=== PATIENT | female | born 1940 | race Caucasian/White ===

== ENCOUNTER 2021-05-29 09:55 | Inpatient (IN) | payer OTHER, MEDICARE, SELFPAY ==
[2021-05-29] VITALS (40 sets, daily range): BP systolic 97–149; BP diastolic 50–82; PULSE 86–111; RESP 17–44; TEMP 36.6–37.6; O2SAT 71–100; BMI 28.2
--- NOTE | ~2021-05-29 | XR_ITS ---
EXAMINATION: XR chest 2V DATE: 06/01/2021 12:54 INDICATION: Pneumonia TECHNIQUE: frontal and lateral views of the chest were obtained. COMPARISON: Chest radiograph dated 06/08/2021 FINDINGS: Significant decrease in density of regions of airspace opacity in the right mid to upper lung zones a nd throughout the left lung consistent with improving pneumonia. No pleural effusion or pneumothorax. Heart size is within normal limits for AP technique. Enlargement of the central pulmonary arteries c onsistent with pulmonary arterial hypertension. Mild thoracic dextrocurvature with moderate to severe spondylosis. IMPRESSION: 1. Significant improvement in patchy bilateral lung disease consistent with improving pneumonia. 2. Enlargement of the central pulmonary arteries consistent with pulmonary arterial hypertension. Reviewed, dictated and finalized at location B. SPINNER IMPRESSION: 1. Significant improvement in patchy bilateral lung disease consistent with imp roving pneumonia. 2. Enlargement of the central pulmonary arteries consistent with pulmonary jersey rial hypertension.
--- NOTE | ~2021-05-29 | US_ITS ---
EXAMINATION: US venous doppler [facility] DATE: 05/29/2021 13:18 INDICATION: Bilateral lower limb edema TECHNIQUE: Malave scale images without and with compression and Doppler images of the bilateral lower e xtremity veins were obtained. COMPARISON: None FINDINGS: The right common femoral vein, profunda femoral vein, femoral vein, popliteal vein, peroneal trunk, p osterior tibial veins, and greater saphenous vein are patent. The left common femoral vein, profunda femoral vein, femoral vein, popliteal vein, peroneal trunk, po sterior tibial veins, and greater saphenous vein are patent. IMPRESSION: 1. Patent bilateral lower extremity veins. No evidence of deep venous thrombosis. Reviewed, dictated and finalized at location A. ER TAPING MACHINE OPERATOR IMPRESSION: 1. Patent bilateral lower extremity veins. No evidence of deep venous thrombosi s.
--- NOTE | ~2021-05-29 | XR_ITS ---
EXAMINATION: XR chest 2V DATE: 05/29/2021 10:31 INDICATION: Shortness of breath TECHNIQUE: AP and lateral views of the chest are obtained. COMPARISON: None available FINDINGS: There are bilateral perihilar opacities extending peripherally into the lungs. More focal a irspace opacities are seen laterally in the right midlung zone and at the periphery of the left lower lung zone. There is no pleural effusion or pneumothorax. The cardiomediastinal silhouette is normal. There is mild thoracic spondylosis. IMPRESSION: 1. Bilateral perihilar opacities with more focal airspace opacity of the right midlung zone and left lower lung zone. Findings could reflect pulmonary edema versus pneumonia however underlying malignanc y could be obscured. Follow-up chest CT is recommended. Reviewed, dictated and finalized at location A. S READER IMPRESSION: 1. Bilateral perihilar opacities with more focal airspace opacity of the right midlung zone and left lower lung zone. Findings could reflect pulmonary edema v ersus pneumonia however underlying malignancy could be obscured. Follow-up ches t CT is recommended.
--- NOTE | ~2021-05-29 | CT_ITS ---
EXAMINATION: CTA chest PE protocol DATE: 05/29/2021 13:26 INDICATION: Shortness of breath. TECHNIQUE: Computed tomography (CT) pulmonary angiogram of the chest was performed with 100 mL Omnipa que-350 intravenous contrast. Additional 3D reconstructions utilizing coronal maximum intensity proje ction (MIP) were performed. Automated exposure control and iterative reconstruction technique were em ployed. The dose-length product was 217.59 mGy-cm. COMPARISON: None FINDINGS: Excellent contrast opacification of the pulmonary arteries. There is mild streak artifact from dense contrast in the superior vena cava and right atrium. Moderate to severe respiratory motion artifact m ost prominent at the lung bases and right upper lung zone which renders assessment in the segmental a nd subsegmental pulmonary arteries and essentially nondiagnostic. Decreased sensitivity in the remain ing segmental and subsegmental pulmonary arteries. No evident pulmonary embolism. There is enlargemen t of the central pulmonary arteries consistent with pulmonary arterial hypertension. Patchy consolida tion with air bronchograms in the bilateral upper lobes with smaller regions of small patchy airspace opacities in the lingula and to lesser degree right middle and bilateral lower lobes consistent with multifocal pneumonia. No pleural effusion. Emphysema suggested in the lower lung zones however fine pulmonary parenchymal detail is obscured by the motion artifact which decreases specificity. Heart si ze is normal. No pericardial effusion. Thoracic aorta is normal in caliber with no dissection. Mild m ediastinal and bilateral hilar lymphadenopathy which is likely reactive. Hydronephrosis versus parape lvic cysts at the visualized upper pole of the left kidney. Mild S-shaped curvature of the thoracic s pine. Severe lower cervical and moderate to severe thoracic spondylosis. IMPRESSION: 1. No evident pulmonary embolism. Sensitivity significantly decreased in the segmental and subsegment al pulmonary arteries due to primarily to respiratory motion artifact. 2. Bilateral multifocal pneumonia. 3. Likely emphysema assessment is somewhat limited by motion artifact. 4. Likely reactive mediastinal and bilateral hilar lymphadenopathy. 5. Hydronephrosis versus prominent peripelvic cysts at the visualized upper pole of the left kidney. Reviewed, dictated and finalized at location B. D INSTALLER IMPRESSION: 1. No evident pulmonary embolism. Sensitivity significantly decreased in the se gmental and subsegmental pulmonary arteries due to primarily to respiratory mot ion artifact. 2. Bilateral multifocal pneumonia. 3. Likely emphysema assessment is somewhat limited by motion artifact. 4. Likely reactive mediastinal and bilateral hilar lymphadenopathy. 5. Hydronephrosis versus prominent peripelvic cysts at the visualized upper sandy e of the left kidney.
--- NOTE | ~2021-05-29 | US_ITS ---
EXAMINATION: US renal BI EXAM DATE: 05/30/2021 17:28 INDICATION: Hydronephrosis. TECHNIQUE: Multiple grayscale and Doppler images of the kidneys were obtained (by a technologist who performed the scan) and subsequently reviewed. There is no prior study for comparison. FINDINGS: Right kidney: There is normal contour and echogenicity. It measures 9.8 x 4.1 x 5.3 centimeters. Th ere are no focal renal lesions identified. There is no hydronephrosis. Left kidney: There is normal contour and echogenicity. It measures 11.2 x 4.1 x 5.6 centimeters. Pro bable left renal parapelvic cysts measuring up to 1.4 cm. There is no caliectasis, no hydronephrosis suspected.. Bladder is undistended. IMPRESSION: Left renal peripelvic cysts. Reviewed, dictated and finalized at location A. ED GOODS SPOT PICKER
--- NOTE | 2021-05-29 10:18 | ECG_ITS ---
Measurements Intervals [place] Rate: 112 P: 57 MN: 151 QRS: -73 QRSD: 97 T: 49 QT: 329 QTc: 449 Interpretive Statements SINUS TACHYCARDIA VENTRICULAR PREMATURE COMPLEX POSSIBLE LEFT ATRIAL ENLARGEMENT LEFT AXIS DEVIATION INCOMPLETE RIGHT BUNDLE BRANCH BLOCK POOR R WAVE PROGRESSION, ANTERIOR LEADS BASELINE ARTIFACT- I, II, III, AVR, AVL, V1-V2 ABNORMAL ECG Electronically Signed On 05-29-2021 10:27:50 CRACK OFF PERSON by Bruce Bahena D.O.
--- NOTE | 2021-05-29 11:08 | ED.SOB ---
HPI - SOB/Dyspnea General Chief Complaint: Shortness of Breath/Dyspnea <Kassandra Artis PA-C - Last Filed: 05/29/21 14:31> Stated Complaint: SOB DIFFICULTY BREATHING <Kassandra Artis PA-C - Last Filed: 05/29/21 14:31> Time Seen by Provider: 05/29/21 10:20 <Kassandra Artis PA-C - Last Filed: 05/29/21 14:31> Source: patient <Kassandra Artis PA-C - Last Filed: 05/29/21 14:31> Mode of arrival: EMS <Kassandra Artis PA-C - Last Filed: 05/29/21 14:31> Limitations: no limitations <Kassandra Artis PA-C - Last Filed: 05/29/21 14:31> History of Present Illness HPI Narrative: This is an 16-year-old female that presents to the emergency department for shortness of breath ongoing over the last 2 days. Reports she has been traveling with her son and ran out of her inhaler. She has had worsening shortness of breath and cough. Also reports swelling in her lower extremities that has been ongoing for months. She is Covid vaccinated. Denies fever or chest pain. <Kassandra Artis PA-C - Last Filed: 05/29/21 14:31> Related Data Allergies/Adverse Reactions: Allergies Allergy/AdvReac Type Severity Reaction Status Date / Time No Known Allergies Allergy Verified 05/29/21 10:13 <Kassandra Artis PA-C - Last Filed: 05/29/21 14:31> Review of Systems Review of Systems: CONSTITUTIONAL: Denies fever CARDIOVASCULAR: Reports edema. Denies chest pain RESPIRATORY: Reports cough and dyspnea. <Kassandra Artis PA-C - Last Filed: 05/29/21 14:31> All systems reviewed & are unremarkable except as noted in HPI and below <Kassandra Artis PA-C - Last Filed: 05/29/21 14:31> [facility] Past Medical History Medical History: Medical History (Updated 05/29/21 @ 14:23 by Kassandra Artis PA-C) History of asthma <Kassandra Artis PA-C - Last Filed: 05/29/21 14:31> Social History Social History: Social History (Updated 05/29/21 @ 11:10 by Kassandra Artis PA-C) Smoking status: Never smoker <Kassandra Artis PA-C - Last Filed: 05/29/21 14:31> Exam Narrative: GENERAL: Elderly, well-nourished, and in no acute distress. HEAD: Normocephalic, atraumatic. EYES: EOMI. ENT: Nares clear, no rhinorrhea or epistaxis. Mucous membranes moist. Oropharynx without tonsillar hypertrophy exudate or other lesions. NECK: Supple. No adenopathy or masses. CHEST: No respiratory distress. Rales noted throughout the lungs. No wheezes or rhonchi HEART: Regular rate and rhythm. No murmur heard. Normal peripheral pulses. EXTREMITIES: Normal range of motion. 1+ pitting edema to the bilateral lower extremities SKIN: Warm, dry, no rash. NEURO: No focal deficits. Alert and oriented x3. PSYCH: Normal mood and affect <Kassandra Artis PA-C - Last Filed: 05/29/21 14:31> Course ROLLED GLASS CROSSCUTTER/PA Physician Supervision For this patient encounter, I reviewed the ROLLED GLASS CROSSCUTTER or PA documentation, treatment plan, and medical decision making; and I had [id number] time with this patient. SOB and cough for a day, improved on O2, agree with w/u and plan <Tahir Wills MD - Last Filed: 05/29/21 15:58> Consultations Consultation #1: Spoke with hospitalist about patient and work-up who accepts admission <Kassandra Artis PA-C - Last Filed: 05/29/21 14:31> Date: 05/29/21 <Kassandra Artis PA-C - Last Filed: 05/29/21 14:31> Time: 14:00 <Kassandra Artis PA-C - Last Filed: 05/29/21 14:31> Vital Signs Vital signs: Vital Signs Temperature 37.3 C 05/29/21 09:56 Pulse Rate 104 H 05/29/21 09:56 Respiratory Rate 26 H 05/29/21 09:56 Blood Pressure 118/76 05/29/21 09:56 Pulse Oximetry 93 05/29/21 09:56 Temperature 37.3 C 05/29/21 09:56 Pulse Rate 99 05/29/21 14:31 Respiratory Rate 26 H 05/29/21 14:31 Blood Pressure 133/78 05/29/21 14:31 Pulse Oximetry 95 05/29/21 14:15 <Kassandra Artis PA-C - Last Filed: 05/29/21 14:31> Vital Signs Temperature 37.3 C 05/29/21 09:56
[2021-05-29 11:47] LABS: Hematocrit 36.8 % (37.0-47.0); Hemoglobin 11.6 g/dL (12.0-15.0); Mean Corpuscular HGB Conc 31.5 g/dl (32-36); Mean Corpuscular Hemoglobin 27.8 pg (26-34); Mean Corpuscular Volume 88.2 fl (80-100); Mean Platelet Volume 9.6 fl (7.4-10.4); Platelet Count Result 231 k/mm3 (150-375); Red Blood Count 4.17 M/mm3 (4.2-5.4); Red Cell Distribution Width 17.5 % (11.5-14.5); White Blood Count 12.5 K/mm3 (4.5-10.0)
[2021-05-29 11:56] LABS: Alanine Aminotransferase 13 U/L (4-35); Albumin Level 3.6 g/dL (3.5-5.1); Alkaline Phosphatase 88 U/L (38-126); Anion Gap 6 mmol/L (8-16); Aspartate Amino Transferase 23 U/L (14-36); Bilirubin,Total 0.7 mg/dL (0.2-1.3); Blood Urea Nitrogen 12 mg/dL (7-17); Calcium 8.7 mg/dL (8.4-10.2); Carbon Dioxide 25 mmol/L (22-30); Chloride 100 mmol/L (98-107); Estimated CRCL calculation 51 ml/min; Estimated Glomerular Filt Rate > 60; Glucose 120 mg/dL (65-110); Potassium 3.7 mmol/L (3.4-5.0); Sodium 131 mmol/L (137-145)
[2021-05-29 11:57] LABS: INR 1.2; Prothrombin Time 14.8 Seconds (11.1-14.7)
[2021-05-29 11:58] LABS: Partial Thromboplastin Time 31.2 SECONDS (22.3-36.8)
[2021-05-29 12:00] LABS: D Dimer 3.38 ug/mL (<0.48)
[2021-05-29 12:04] LABS: NT Pro B Type Natriuretic Pept 3480 pg/mL (5-100)
[2021-05-29] MEDS: FUROSEMIDE INJ 40 MG/4 ML VIAL IV PUSH (12:13)
[2021-05-29 12:26] LABS: Band Neutrophils Percent 20 % (0-6); Metamyelocytes Percent 2 %; Monocytes Percent Manual 12 % (3-9); Neutrophils Absolute Manual 10.25 K/mm3 (1.7-7.2); Neutrophils Percent Manual 62 % (46-73); Total Cells Counted 100
[2021-05-29 12:27] LABS: Hypochromasia 1+ (NORMAL); Platelet Estimate Adequate (Adequate)
--- NOTE | 2021-05-29 12:30 | PC.NURSE ---
Pt gone to ultra sound and CT
--- NOTE | 2021-05-29 12:50 | PC.NURSE ---
Provided son with update
--- NOTE | 2021-05-29 14:35 | PC.NURSE ---
GEORGIANA Cohn confirmed she would like blood cultures, will get blood cultures before starting antibiotics
[2021-05-29 15:05] LABS: Lactic Acid Reflex 1.9 mmol/L (0.7-2.1)
[2021-05-29 15:13] LABS: Lactate Dehydrogenase 515 U/L (313-618)
[2021-05-29 15:28] LABS: CRP 25.5 mg/dL (<1.0)
--- NOTE | 2021-05-29 18:35 | PC.NURSE ---
Called pharmacy to send albuterol inhaler
[2021-05-29] MEDS: ALBUTEROL SULFATE (*SP) AEROSOL 1 PUFF 2 PUFF INHALATION (18:46)
--- NOTE | 2021-05-29 18:52 | PC.NURSE ---
Attempted to give report x2
--- NOTE | 2021-05-29 20:05 | PM.IMHP ---
H&P: HPI History of Present Illness Date/Time: 05/29/21 20:05 this is a 80-year-old female patient who resides in [place]. She had been out of her inhalers and she has a history of asthma. She has been having a worsening cough and shortness of breath. She does not wear oxygen at home. Her son Irvin also has a cough. CTA was read as 1. No evident pulmonary embolism. Sensitivity significantly decreased in the segmental and subsegmental pulmonary arteries due to primarily to respiratory motion artifact. 2. Bilateral multifocal pneumonia. 3. Likely emphysema assessment is somewhat limited by motion artifact. 4. Likely reactive mediastinal and bilateral hilar lymphadenopathy. 5. Hydronephrosis versus prominent peripelvic cysts at the visualized upper pole of the left kidney. The patient was given IV Lasix and started on Rocephin and azithromycin. She was also given an albuterol inhaler. Patient is on oxygen at 5 L per nasal cannula. White count is 12.5 H&H 11.6 and 36.8. D-dimer 3.38. BNP 3480. C reactive protein 25.5. COVID testing is pending. Patient is being admitted to inpatient status on the date of service of 05/29/2021. Chief Complaint: cough Review of Systems Review of Systems: All systems reviewed & are unremarkable except as noted in HPI and below Constitutional: Constitutional: Reports as per HPI and Reports no additional constitutional complaints Eyes: Eyes: Reports as per HPI and Reports no additional eye complaints ENT: Reports system reviewed and no additional complaints, except as documented and Reports Normal hearing present Cardiovascular: Cardiovascular: Reports no additional cardiovascular complaints Respiratory: Respiratory: Reports no additional respiratory complaints and Reports no additional respiratory complaints Gastrointestinal: Gastrointestinal: Reports as per HPI and Reports no additional gastrointestinal complaints Musculoskeletal: Musculoskeletal: Reports no additional musculoskeletal complaints Integumentary/Breasts: Skin/Breast: Reports system reviewed and no additional complaints, except as docu and Reports as per HPI Neurologic: Reports system reviewed and no additional complaints, except as documented, Reports as per HPI and Reports Normal hearing present Psychiatric: Psychiatric: Reports no additional psychiatric complaints and Reports as per HPI Endocrine: Endocrine: Reports no additional endocrine complaints Hematologic/Lymphatic: Hematologic/Lymphatic: Reports no additional hematologic/lymphatic complaints Allergic/Immunologic: Allergic/Immunologic: Reports no additional allergic/immunologic complaints [facility] Past Medical History Medical History (Updated 05/29/21 @ 14:23 by Kassandra Artis PA-C) History of asthma Surgical History Surgical History (Updated 05/29/21 @ 20:16 by Tiana Lr NP) H/O section X3 Family History Family History (Updated 05/29/21 @ 20:17 by Tiana Lr NP) Unknown No family history of disorders Social History Social History (Updated 05/29/21 @ 20:21 by Tiana Lr NP) Social History: The patient had 3 children and 1 was a stillbirth. The patient is and lives in [place]. She has 2 living children. The patient still works for [employer]. She lives with her son. The son is a durable power civil attorney for healthcare. Code status full code Smoking status: Never smoker Meds Home Medications and Allergies Allergies Allergy/AdvReac Type Severity Reaction Status Date / Time No Known Allergies Allergy Verified 05/29/21 10:13 Vital Signs Vital Signs - 24 hr 05/29/21 09:56 05/29/21 10:22 05/29/21 11:30 Temperature 37.3 C Pulse Rate 104 H 111 H 102 H Respiratory Rate 26 H 17 Blood Pressure 118/76 Pulse Oximetry 93 95 05/29/21 11:31 05/29/21 11:45 05/29/21 12:00 Temperature Pulse Rate 98 Respiratory Rate 26 H Blood Pressure 116/69 Pulse Oximetry 7
[2021-05-29 21:04] LABS: Alanine Aminotransferase 14 U/L (4-35); Estimated CRCL calculation 51 ml/min; Estimated Glomerular Filt Rate > 60
[2021-05-29 21:11] LABS: INR 1.4; Prothrombin Time 16.5 Seconds (11.1-14.7)
[2021-05-29] MEDS: ACETAMINOPHEN 325 MG TABLET 650 MG PO (22:07)
--- NOTE | 2021-05-29 22:15 | PC.NURSE ---
This patient, Stacey Aguilar, was admitted to [facility] Surg Room 305-01. Patient/family oriented to hospital policies and general routines including ID bracelet, bed and alarms, visiting hours, pain management, procedures, bathroom and other care routines, personal items, smoking policy, room service/diet, and visiting hours. Information on how to activate the Rapid Response Team has been discussed. Patient/Family are encouraged to report perceived risks to care and to ask questions if they do not understand what they are told or what they should do.
[2021-05-30] VITALS (8 sets, daily range): BP systolic 95–132; BP diastolic 48–64; PULSE 64–83; RESP 16–19; TEMP 35.8–36.4; O2SAT 93–100; BMI 28.2
[2021-05-30 07:40] LABS: INR 1.4; Prothrombin Time 16.8 Seconds (11.1-14.7)
[2021-05-30 07:47] LABS: Lactic Acid Reflex 1.6 mmol/L (0.7-2.1)
[2021-05-30 07:54] LABS: Alanine Aminotransferase 14 U/L (4-35); Albumin Level 3.7 g/dL (3.5-5.1); Alkaline Phosphatase 95 U/L (38-126); Anion Gap 8 mmol/L (8-16); Aspartate Amino Transferase 22 U/L (14-36); Bilirubin,Total 0.6 mg/dL (0.2-1.3); Blood Urea Nitrogen 20 mg/dL (7-17); Calcium 8.9 mg/dL (8.4-10.2); Carbon Dioxide 29 mmol/L (22-30); Chloride 99 mmol/L (98-107); Estimated CRCL calculation 45 ml/min; Estimated Glomerular Filt Rate > 60; Glucose 138 mg/dL (65-110); Lactate Dehydrogenase 465 U/L (313-618); Magnesium 2.2 mg/dL (1.6-2.3); Potassium 3.8 mmol/L (3.4-5.0); Sodium 136 mmol/L (137-145)
[2021-05-30] MEDS: ENOXAPARIN 40 MG/0.4 ML SYRINGE SUB-Q (08:38)
[2021-05-30 09:56] LABS: Hematocrit 37.8 % (37.0-47.0); Hemoglobin 11.7 g/dL (12.0-15.0); Mean Corpuscular Hemoglobin 28.1 pg (26-34); Mean Corpuscular Volume 90.9 fl (80-100); Mean Platelet Volume 9.9 fl (7.4-10.4); Platelet Count Result 217 k/mm3 (150-375); Red Blood Count 4.16 M/mm3 (4.2-5.4); Red Cell Distribution Width 17.3 % (11.5-14.5); White Blood Count 11.8 K/mm3 (4.5-10.0)
--- NOTE | 2021-05-30 10:15 | P.PNIM_ITS ---
Progress Note: A&P Assessment and Plan (1) Pneumonia: Qualifiers: Laterality: bilateral Lung location: unspecified part of lung Pneumonia type: due to unspecified organism Qualified Code(s): J18.9 - Pneumonia, unspecified organism Code(s): J18.9 - Pneumonia, unspecified organism Status: Acute Assessment and Plan: * Chest x-ray show bilateral peripheral opacities with focal airspace opacities in the right mid low zone and left lower lung zone pulmonary edema versus pneumonia * CTA showed no PE, bilateral multifocal pneumonia, emphysema * Continue with azithromycin Rocephin * Continue with inhaler * Blood cultures pending * COVID pending * sputum culture ordered * tailor antibiotics as sensitivities arrive * await cultures (2) Acute respiratory failure with hypoxia: Code(s): J96.01 - Acute respiratory failure with hypoxia Status: Acute Assessment and Plan: * SpO2 noted to be at 71 * supplemental oxygen provided wean to maintain saturations greater than 92% * no history of oxygen use at home * Trend SpO2 * there could be a component of heart failure (3) Person under investigation for COVID-19: Code(s): Z20.822 - Contact with and (suspected) exposure to COVID-19 Status: Acute Assessment and Plan: * droplet and contact isolation * Start Decadron * COVID pending * Lovenox * albuterol (4) Heart failure: Code(s): I50.9 - Heart failure, unspecified Status: Acute Assessment and Plan: * BNP 3480 * echo pending * 2+ pitting edema bilateral lower extremities * add Lasix 40 mg b.i.d. x4 doses * monitor urine output * daily weights (5) Asthma: Code(s): J45.909 - Unspecified asthma, uncomplicated Status: Acute Assessment and Plan: * continue home Advair, and albuterol * CTA shows emphysema (6) Lymphadenopathy: Code(s): R59.1 - Generalized enlarged lymph nodes Status: Acute Assessment and Plan: * found on the chest CT will have patient follow-up outpatient when she gets home Time Spent With Patient Time with patient: Greater than 35 minutes Subjective Date/time seen: 05/30/21 1015 Interval history: Date/Time: 05/29/21 20:05 This is a 80-year-old female patient who resides in [place]. She had been out of her inhalers and she has a history of asthma. She has been having a worsening cough and shortness of breath. She does not wear oxygen at home. Her son Irvin also has a cough. CTA was read as 1. No evident pulmonary embolism. Sensitivity significantly decreased in the segmental and subsegmental pulmonary arteries due to primarily to respiratory motion artifact. 2. Bilateral multifocal pneumonia. 3. Likely emphysema assessment is somewhat limited by motion artifact. 4. Likely reactive mediastinal and bilateral hilar lymphadenopathy. 5. Hydronephrosis versus prominent peripelvic cysts at the visualized upper pole of the left kidney. The patient was given IV Lasix and started on Rocephin and azithromycin. She was also given an albuterol inhaler. Patient is on oxygen at 5 L per nasal cannula. White count is 12.5 H&H 11.6 and 36.8. D-dimer 3.38. BNP 3480. C reactive protein 25.5. COVID testing is pending. Date/Time 05/30/21 1015 Patient stated that she feels okay however she has no energy and lack of appetite. Patient was having some sweats however she has
--- NOTE | 2021-05-30 10:15 | PM.IMPN ---
Progress Note: A&P Assessment and Plan (1) Pneumonia: Qualifiers: Laterality: bilateral Lung location: unspecified part of lung Pneumonia type: due to unspecified organism Qualified Code(s): J18.9 - Pneumonia, unspecified organism Code(s): J18.9 - Pneumonia, unspecified organism Status: Acute Assessment and Plan: Chest x-ray show bilateral peripheral opacities with focal airspace opacities in the right mid low zone and left lower lung zone pulmonary edema versus pneumonia CTA showed no PE, bilateral multifocal pneumonia, emphysema Continue with azithromycin Rocephin Continue with inhaler Blood cultures pending COVID pending sputum culture ordered tailor antibiotics as sensitivities arrive await cultures (2) Acute respiratory failure with hypoxia: Code(s): J96.01 - Acute respiratory failure with hypoxia Status: Acute Assessment and Plan: SpO2 noted to be at 71 supplemental oxygen provided wean to maintain saturations greater than 92% no history of oxygen use at home Trend SpO2 there could be a component of heart failure (3) Person under investigation for COVID-19: Code(s): Z20.822 - Contact with and (suspected) exposure to COVID-19 Status: Acute Assessment and Plan: droplet and contact isolation Start Decadron COVID pending Lovenox albuterol (4) Heart failure: Code(s): I50.9 - Heart failure, unspecified Status: Acute Assessment and Plan: BNP 3480 echo pending 2+ pitting edema bilateral lower extremities add Lasix 40 mg b.i.d. x4 doses monitor urine output daily weights (5) Asthma: Code(s): J45.909 - Unspecified asthma, uncomplicated Status: Acute Assessment and Plan: continue home Advair, and albuterol CTA shows emphysema (6) Lymphadenopathy: Code(s): R59.1 - Generalized enlarged lymph nodes Status: Acute Assessment and Plan: found on the chest CT will have patient follow-up outpatient when she gets home Time Spent With Patient Time with patient: Greater than 35 minutes Subjective Date/time seen: 05/30/21 1015 Interval history: Date/Time: 05/29/21 20:05 This is a 80-year-old female patient who resides in [place]. She had been out of her inhalers and she has a history of asthma. She has been having a worsening cough and shortness of breath. She does not wear oxygen at home. Her son Irvin also has a cough. CTA was read as 1. No evident pulmonary embolism. Sensitivity significantly decreased in the segmental and subsegmental pulmonary arteries due to primarily to respiratory motion artifact. 2. Bilateral multifocal pneumonia. 3. Likely emphysema assessment is somewhat limited by motion artifact. 4. Likely reactive mediastinal and bilateral hilar lymphadenopathy. 5. Hydronephrosis versus prominent peripelvic cysts at the visualized upper pole of the left kidney. The patient was given IV Lasix and started on Rocephin and azithromycin. She was also given an albuterol inhaler. Patient is on oxygen at 5 L per nasal cannula. White count is 12.5 H&H 11.6 and 36.8. D-dimer 3.38. BNP 3480. C reactive protein 25.5. COVID testing is pending. Date/Time 05/30/21 1015 Patient stated that she feels okay however she has no energy and lack of appetite. Patient was having some sweats however she has not had any sweats fevers or chills today. She is weak and she does have fatigue and she is feeling hot. She is short of breath and has productive cough which she stated was yellow and looks like vanilla pudding. Patient was very good about remembering her childhood. COVID test is still pending. Patient denied chest pain, lightheadedness, dizziness, headaches. Review of Systems Review of Systems: All systems reviewed & are unremarkable except as noted in HPI and below Exam Const: Gen
[2021-05-30 12:07] LABS: Band Neutrophils Percent 17 % (0-6); Monocytes Absolute Manual 0.59 K/mm3 (0.1-0.90); Monocytes Percent Manual 5 % (3-9); Neutrophils Absolute Manual 11.21 K/mm3 (1.7-7.2); Neutrophils Percent Manual 78 % (46-73); Platelet Estimate Adequate (Adequate); Total Cells Counted 100
[2021-05-30] MEDS: FUROSEMIDE INJ 40 MG/4 ML VIAL IV PUSH (18:26)
[2021-05-30 20:26] LABS: SARS-CoV-2 RNA PCR Negative
[2021-05-31] VITALS (11 sets, daily range): BP systolic 110–141; BP diastolic 46–74; PULSE 59–90; RESP 18–20; TEMP 36–36.5; O2SAT 94–98
[2021-05-31 07:00] LABS: Basophils Absolute Auto 0.1 K/mm3 (0.0-0.1); Basophils Percent Auto 0.4 % (0.2-1.2); Hemoglobin 13.1 g/dL (12.0-15.0); Immature Granulocyte Absolute 0.04 K/mm3 (0.00-0.031); Immature Granulocyte Percent A 0.3 % (0-0.5); Lymphocytes Absolute Auto 0.59 K/mm3 (0.9-3.2); Lymphocytes Percent Auto 4.9 % (18.3-44.2); Mean Corpuscular HGB Conc 31.2 g/dl (32-36); Mean Corpuscular Hemoglobin 27.9 pg (26-34); Mean Corpuscular Volume 89.6 fl (80-100); Mean Platelet Volume 10.3 fl (7.4-10.4); Monocytes Absolute Auto 0.6 K/mm3 (0.1-0.6); Neutrophils Absolute Auto 10.8 K/mm3 (1.3-6.7); Neutrophils Percent Auto 89.4 % (45.5-73.1); Platelet Count Result 259 k/mm3 (150-375); Red Blood Count 4.69 M/mm3 (4.2-5.4); Red Cell Distribution Width 17.2 % (11.5-14.5); White Blood Count 12.1 K/mm3 (4.5-10.0)
[2021-05-31 07:23] LABS: Alanine Aminotransferase 14 U/L (4-35); Albumin Level 3.6 g/dL (3.5-5.1); Alkaline Phosphatase 91 U/L (38-126); Anion Gap 10 mmol/L (8-16); Aspartate Amino Transferase 21 U/L (14-36); Bilirubin,Total 0.4 mg/dL (0.2-1.3); Blood Urea Nitrogen 34 mg/dL (7-17); Calcium 8.9 mg/dL (8.4-10.2); Carbon Dioxide 27 mmol/L (22-30); Chloride 99 mmol/L (98-107); Estimated CRCL calculation 44 ml/min; Estimated Glomerular Filt Rate > 60; Glucose 129 mg/dL (65-110); Magnesium 2.7 mg/dL (1.6-2.3); Potassium 3.6 mmol/L (3.4-5.0); Sodium 136 mmol/L (137-145)
[2021-05-31 07:42] LABS: INR 1.1; Prothrombin Time 13.8 Seconds (11.1-14.7)
[2021-05-31] MEDS: ENOXAPARIN 40 MG/0.4 ML SYRINGE SUB-Q (09:45)
[2021-05-31] MEDS: FUROSEMIDE INJ 40 MG/4 ML VIAL IV PUSH ×2 (09:45→16:59)
--- NOTE | 2021-05-31 10:30 | PM.IMPN ---
Progress Note: A&P Assessment and Plan (1) Pneumonia: Qualifiers: Laterality: bilateral Lung location: unspecified part of lung Pneumonia type: due to unspecified organism Qualified Code(s): J18.9 - Pneumonia, unspecified organism Code(s): J18.9 - Pneumonia, unspecified organism Status: Acute Assessment and Plan: Chest x-ray show bilateral peripheral opacities with focal airspace opacities in the right mid low zone and left lower lung zone pulmonary edema versus pneumonia CTA showed no PE, bilateral multifocal pneumonia, emphysema Continue with azithromycin Rocephin Continue with inhaler Blood cultures found Haemophilus influenzae Changed antibiotics to ceftriaxone 2gm IV Q12hr COVID negative sputum culture pending tailor antibiotics as sensitivities arrive await cultures WBC 12.1 (2) Acute respiratory failure with hypoxia: Code(s): J96.01 - Acute respiratory failure with hypoxia Status: Acute Assessment and Plan: SpO2 noted to be at 76 with activity supplemental oxygen provided wean to maintain saturations greater than 92% no history of oxygen use at home Trend SpO2 there could be a component of heart failure (3) Heart failure: Code(s): I50.9 - Heart failure, unspecified Status: Acute Assessment and Plan: BNP 3480 echo ordered 2+ pitting edema bilateral lower extremities add Lasix 40 mg b.i.d. x4 doses monitor urine output daily weights (4) Asthma: Code(s): J45.909 - Unspecified asthma, uncomplicated Status: Acute Assessment and Plan: continue home Advair, and albuterol CTA shows emphysema (5) Lymphadenopathy: Code(s): R59.1 - Generalized enlarged lymph nodes Status: Acute Assessment and Plan: found on the chest CT will have patient follow-up outpatient when she gets home Time Spent With Patient Time with patient: Greater than 35 minutes Subjective Date/time seen: 05/31/21 10:30 Interval history: Date/Time: 05/29/21 20:05 This is a 80-year-old female patient who resides in [place]. She had been out of her inhalers and she has a history of asthma. She has been having a worsening cough and shortness of breath. She does not wear oxygen at home. Her son Irvin also has a cough. CTA was read as 1. No evident pulmonary embolism. Sensitivity significantly decreased in the segmental and subsegmental pulmonary arteries due to primarily to respiratory motion artifact. 2. Bilateral multifocal pneumonia. 3. Likely emphysema assessment is somewhat limited by motion artifact. 4. Likely reactive mediastinal and bilateral hilar lymphadenopathy. 5. Hydronephrosis versus prominent peripelvic cysts at the visualized upper pole of the left kidney. The patient was given IV Lasix and started on Rocephin and azithromycin. She was also given an albuterol inhaler. Patient is on oxygen at 5 L per nasal cannula. White count is 12.5 H&H 11.6 and 36.8. D-dimer 3.38. BNP 3480. C reactive protein 25.5. COVID testing is pending. Date/Time 05/30/21 1015 Patient stated that she feels okay however she has no energy and lack of appetite. Patient was having some sweats however she has not had any sweats fevers or chills today. She is weak and she does have fatigue and she is feeling hot. She is short of breath and has productive cough which she stated was yellow and looks like vanilla pudding. Patient was very good about remembering her childhood. COVID test is still pending. Patient denied chest pain, lightheadedness, dizziness, headaches. Date/Time 05/31/21 1030 Patient is sitting in the chair, exercising with OT. She is still on quite a bit of oxygen. She is still coughing which she stated is kind of different than her norm. She stated that she normally has a dry cough but this cough is still producing what she calls vanilla pudding.
[2021-05-31] MEDS: cefTRIAXone 2 GM in SODIUM CHLORIDE 0.9% IV 100 ML 200 ML IVPB (21:41)
[2021-06-01] VITALS (8 sets, daily range): BP systolic 151–160; BP diastolic 73–99; PULSE 58–85; RESP 18–20; TEMP 36.2–36.6; O2SAT 92–97
--- NOTE | 2021-06-01 | ECHO_ITS ---
Patient Info Name: Stacey Aguilar Age: 80 years : 1940 Gender: Female Ht: 63 in Wt: 155 lbs BSA: 1.79 m2 HR: 84 bpm BP: 141 / 74 mmHg Heart Rhythm: Sinus Rhythm Technical Quality: Fair Exam Date: 06/01/2021 10:05 AM Exam Location: [facility] Pulmonary Exam Room: 305 Patient Status: Inpatient Admit Date: 05/29/2021 Staff Ordering Physician: Neo Daley Scale Shooter: Kalpana Bolivar RDCS Attending Provider: Jaimie Ortiz MD Referring Physician: Edi GARCIA; Exam Type: CA echo doppler color flow Study Info Indications - fluis status Complete two-dimensional, color flow and Doppler transthoracic echocardiogram is performed. Summary 1. Complete two-dimensional, color flow and Doppler transthoracic echocardiogram is performed. 2. Left ventricular systolic function is normal, estimated at 60-65%. 3. The left ventricular diastolic function is grade I diastolic dysfunction. 4. There is mild aortic valve sclerosis. Left Ventricle Left ventricular chamber dimension is normal. Left ventricular systolic function is normal, estimated at 60-65%. The left ventricular diastolic function is grade I diastolic dysfunction. Right Ventricle Right ventricular chamber dimension is normal. Left Atria Left atrial chamber dimension is normal. Right Atria Right atrial chamber dimension is normal. Aortic Valve The aortic valve is trileaflet. There is mild aortic valve sclerosis. Pulmonic Valve The pulmonic valve is normal. Mitral Valve The mitral valve has normal leaflets. Tricuspid Valve The tricuspid valve leaflets are normal. Pericardium/Pleural The pericardium appears normal. Aorta The aortic root size at the sinus of Valsalva is normal. Left Ventricular Outflow Tract Name Value Normal LVOT 2D LVOT Diameter 2.0 cm LVOT Doppler LVOT Peak Gradient 7 mmHg LVOT Mean Gradient 5 mmHg LVOT VTI 29 cm LVOT VTI/AV VTI Ratio 0.8 LVOT Stroke Volume 91 ml LVOT CO 20.0 l/min LVOT CI 11.2 l/min/m2 Pulmonic Valve Name Value Normal PV Doppler PV Peak Gradient 3 mmHg Mitral Valve Name Value Normal MV Doppler MV Decel [place] 313 cm/s2 MV PHT 59 ms MV Area (PHT) 3.7 cm2 4.0-5.0 MV Diastolic Function
[2021-06-01 07:26] LABS: Basophils Percent Auto 0.1 % (0.2-1.2); Hematocrit 37.2 % (37.0-47.0); Hemoglobin 11.7 g/dL (12.0-15.0); Immature Granulocyte Absolute 0.05 K/mm3 (0.00-0.031); Immature Granulocyte Percent A 0.5 % (0-0.5); Lymphocytes Absolute Auto 0.57 K/mm3 (0.9-3.2); Lymphocytes Percent Auto 5.3 % (18.3-44.2); Mean Corpuscular HGB Conc 31.5 g/dl (32-36); Mean Corpuscular Hemoglobin 27.5 pg (26-34); Mean Corpuscular Volume 87.3 fl (80-100); Mean Platelet Volume 10.1 fl (7.4-10.4); Monocytes Absolute Auto 0.5 K/mm3 (0.1-0.6); Neutrophils Absolute Auto 9.5 K/mm3 (1.3-6.7); Neutrophils Percent Auto 89.1 % (45.5-73.1); Platelet Count Result 303 k/mm3 (150-375); Red Blood Count 4.26 M/mm3 (4.2-5.4); Red Cell Distribution Width 17.1 % (11.5-14.5); White Blood Count 10.7 K/mm3 (4.5-10.0)
[2021-06-01 07:45] LABS: Alanine Aminotransferase 21 U/L (4-35); Albumin Level 3.4 g/dL (3.5-5.1); Alkaline Phosphatase 94 U/L (38-126); Anion Gap 8 mmol/L (8-16); Aspartate Amino Transferase 22 U/L (14-36); Bilirubin,Total 0.2 mg/dL (0.2-1.3); Blood Urea Nitrogen 37 mg/dL (7-17); Calcium 9.1 mg/dL (8.4-10.2); Carbon Dioxide 31 mmol/L (22-30); Chloride 98 mmol/L (98-107); Estimated CRCL calculation 44 ml/min; Estimated Glomerular Filt Rate > 60; Glucose 147 mg/dL (65-110); Magnesium 2.3 mg/dL (1.6-2.3); Potassium 3.6 mmol/L (3.4-5.0); Sodium 137 mmol/L (137-145)
[2021-06-01] MEDS: cefTRIAXone 2 GM in SODIUM CHLORIDE 0.9% IV 100 ML 200 ML IVPB (09:13)
[2021-06-01] MEDS: FUROSEMIDE INJ 40 MG/4 ML VIAL IV PUSH (09:14)
[2021-06-01] MEDS: ENOXAPARIN 40 MG/0.4 ML SYRINGE SUB-Q (09:14)
--- NOTE | 2021-06-01 16:28 | P.PNIM_ITS ---
Progress Note: A&P Assessment and Plan (1) Pneumonia: Qualifiers: Laterality: bilateral Lung location: unspecified part of lung Pneumonia type: due to unspecified organism Qualified Code(s): J18.9 - Pneumonia, unspecified organism Code(s): J18.9 - Pneumonia, unspecified organism Status: Acute Assessment and Plan: * Chest x-ray show bilateral peripheral opacities with focal airspace opacities in the right mid low zone and left lower lung zone pulmonary edema versus pneumonia * CTA showed no PE, bilateral multifocal pneumonia, emphysema * Continue with azithromycin Rocephin * Continue with inhaler * Blood cultures found Haemophilus influenzae * Changed antibiotics to ceftriaxone 2gm IV Q12hr * COVID negative * sputum culture pending * tailor antibiotics as sensitivities arrive * await cultures * WBC 12.1 06/01/2021 Interval history: patient sitting in the chair working with occupation therapy states feeling much denies any cough or shortness of fever or chills, repeat chest x-ray shows improvement in pneumonia, will continue present management, her son is coming from [place] and further recommendation to follow. (2) Acute respiratory failure with hypoxia: Code(s): J96.01 - Acute respiratory failure with hypoxia Status: Acute Assessment and Plan: * SpO2 noted to be at 76 with activity * supplemental oxygen provided wean to maintain saturations greater than 92% * no history of oxygen use at home * Trend SpO2 * there could be a component of heart failure (3) Heart failure: Code(s): I50.9 - Heart failure, unspecified Status: Acute Assessment and Plan: * BNP 3480 * echo ordered * 2+ pitting edema bilateral lower extremities * add Lasix 40 mg b.i.d. x4 doses * monitor urine output * daily weights (4) Asthma: Code(s): J45.909 - Unspecified asthma, uncomplicated Status: Acute Assessment and Plan: * continue home Advair, and albuterol * CTA shows emphysema (5) Lymphadenopathy: Code(s): R59.1 - Generalized enlarged lymph nodes Status: Acute Assessment and Plan: * found on the chest CT will have patient follow-up outpatient when she gets home Subjective Date/time seen: 06/01/21 16:28 Interval history: Date/Time: 05/29/21 20:05 This is a 80-year-old female patient who resides in [place]. She had been out of her inhalers and she has a history of asthma. She has been having a worsening cough and shortness of breath. She does not wear oxygen at home. Her son Irvin also has a cough. CTA was read as 1. No evident pulmonary embolism. Sensitivity significantly decreased in the segmental and subsegmental pulmonary arteries due to primarily to respiratory motion artifact. 2. Bilateral multifocal pneumonia. 3. Likely emphysema assessment is somewhat limited by motion artifact. 4. Likely reactive mediastinal and bilateral hilar lymphadenopathy. 5. Hydronephrosis versus prominent peripelvic cysts at the visualized upper pole of the left kidney. The patient was given IV Lasix and started on Rocephin and azithromycin. She was also given an albuterol inhaler. Patient is on oxygen at 5 L per nasal cannula. White count is 12.5 H&H 11.6 and 36.8. D-dimer 3.38. BNP 3480. C reactive protein 25.5. COVID testing is pending. Date/Time 05/30/21 1015 Patient stated that she feels okay however she has no energy and lack of appetite. Patient wa
--- NOTE | 2021-06-01 16:28 | PM.IMPN ---
Progress Note: A&P Assessment and Plan (1) Pneumonia: Qualifiers: Laterality: bilateral Lung location: unspecified part of lung Pneumonia type: due to unspecified organism Qualified Code(s): J18.9 - Pneumonia, unspecified organism Code(s): J18.9 - Pneumonia, unspecified organism Status: Acute Assessment and Plan: Chest x-ray show bilateral peripheral opacities with focal airspace opacities in the right mid low zone and left lower lung zone pulmonary edema versus pneumonia CTA showed no PE, bilateral multifocal pneumonia, emphysema Continue with azithromycin Rocephin Continue with inhaler Blood cultures found Haemophilus influenzae Changed antibiotics to ceftriaxone 2gm IV Q12hr COVID negative sputum culture pending tailor antibiotics as sensitivities arrive await cultures WBC 12.1 06/01/2021 Interval history: patient sitting in the chair working with occupation therapy states feeling much denies any cough or shortness of fever or chills, repeat chest x-ray shows improvement in pneumonia, will continue present management, her son is coming from [place] and further recommendation to follow. (2) Acute respiratory failure with hypoxia: Code(s): J96.01 - Acute respiratory failure with hypoxia Status: Acute Assessment and Plan: SpO2 noted to be at 76 with activity supplemental oxygen provided wean to maintain saturations greater than 92% no history of oxygen use at home Trend SpO2 there could be a component of heart failure (3) Heart failure: Code(s): I50.9 - Heart failure, unspecified Status: Acute Assessment and Plan: BNP 3480 echo ordered 2+ pitting edema bilateral lower extremities add Lasix 40 mg b.i.d. x4 doses monitor urine output daily weights (4) Asthma: Code(s): J45.909 - Unspecified asthma, uncomplicated Status: Acute Assessment and Plan: continue home Advair, and albuterol CTA shows emphysema (5) Lymphadenopathy: Code(s): R59.1 - Generalized enlarged lymph nodes Status: Acute Assessment and Plan: found on the chest CT will have patient follow-up outpatient when she gets home Subjective Date/time seen: 06/01/21 16:28 Interval history: Date/Time: 05/29/21 20:05 This is a 80-year-old female patient who resides in [place]. She had been out of her inhalers and she has a history of asthma. She has been having a worsening cough and shortness of breath. She does not wear oxygen at home. Her son Irvin also has a cough. CTA was read as 1. No evident pulmonary embolism. Sensitivity significantly decreased in the segmental and subsegmental pulmonary arteries due to primarily to respiratory motion artifact. 2. Bilateral multifocal pneumonia. 3. Likely emphysema assessment is somewhat limited by motion artifact. 4. Likely reactive mediastinal and bilateral hilar lymphadenopathy. 5. Hydronephrosis versus prominent peripelvic cysts at the visualized upper pole of the left kidney. The patient was given IV Lasix and started on Rocephin and azithromycin. She was also given an albuterol inhaler. Patient is on oxygen at 5 L per nasal cannula. White count is 12.5 H&H 11.6 and 36.8. D-dimer 3.38. BNP 3480. C reactive protein 25.5. COVID testing is pending. Date/Time 05/30/21 1015 Patient stated that she feels okay however she has no energy and lack of appetite. Patient was having some sweats however she has not had any sweats fevers or chills today. She is weak and she does have fatigue and she is feeling hot. She is short of breath and has productive cough which she stated was yellow and looks like vanilla pudding. Patient was very good about remembering her childhood. COVID test is still pending. Patient denied chest pain, lightheadedness, dizziness, headaches. Date/Time 05/31/21 1030 Patient is sitting in the c
[2021-06-01] MEDS: cefTRIAXone 2 GM in SODIUM CHLORIDE 0.9% IV 100 ML IVPB (21:41)
--- NOTE | 2021-06-01 23:20 | PCRCNOTE ---
therapist in code yellow ed
[2021-06-02 05:43] VITALS: BP 154/74; PULSE 115; RESP 20; TEMP 36.5; O2SAT 94
[2021-06-02 07:06] LABS: Prothrombin Time 13.1 Seconds (11.1-14.7)
[2021-06-02 07:13] LABS: Alanine Aminotransferase 27 U/L (4-35); Estimated CRCL calculation 68 ml/min; Estimated Glomerular Filt Rate > 60
[2021-06-02 08:00] VITALS: O2SAT 94
[2021-06-02] MEDS: cefTRIAXone 2 GM in SODIUM CHLORIDE 0.9% IV 100 ML 200 ML IVPB ×2 (09:01→20:55)
[2021-06-02] MEDS: ASPIRIN 81 MG ENTERIC TABLET PO (09:01)
[2021-06-02] MEDS: ENOXAPARIN 40 MG/0.4 ML SYRINGE SUB-Q (09:01)
--- NOTE | 2021-06-02 11:59 | PCRTNOTE ---
PT. STATES SHE ALREADY USED HER INHALER FROM HOME.
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
[2021-06-02 15:18] VITALS: BP 113/84; PULSE 77; RESP 16; TEMP 36.9; O2SAT 95
[2021-06-02] MEDS: FLUTICASONE/SALMETEROL 230-21 MCG INHALER 1 PUFF 2 PUFF INHALATION (20:58)
[2021-06-02 22:00] VITALS: BP 144/71; PULSE 74; RESP 18; TEMP 36.8; O2SAT 96
[2021-06-03 05:48] VITALS: BP 155/61; PULSE 77; RESP 18; TEMP 36.9; O2SAT 100
[2021-06-03 07:05] LABS: Hematocrit 36.4 % (37.0-47.0); Hemoglobin 11.1 g/dL (12.0-15.0); Mean Corpuscular HGB Conc 30.5 g/dl (32-36); Mean Corpuscular Hemoglobin 27.4 pg (26-34); Mean Corpuscular Volume 89.9 fl (80-100); Mean Platelet Volume 9.9 fl (7.4-10.4); Platelet Count Result 289 k/mm3 (150-375); Red Blood Count 4.05 M/mm3 (4.2-5.4); Red Cell Distribution Width 16.9 % (11.5-14.5); White Blood Count 12.8 K/mm3 (4.5-10.0)
[2021-06-03 07:14] LABS: Anion Gap 5 mmol/L (8-16); Blood Urea Nitrogen 27 mg/dL (7-17); Calcium 9.1 mg/dL (8.4-10.2); Carbon Dioxide 32 mmol/L (22-30); Chloride 99 mmol/L (98-107); Estimated CRCL calculation 68 ml/min; Estimated Glomerular Filt Rate > 60; Glucose 146 mg/dL (65-110); Sodium 136 mmol/L (137-145)
[2021-06-03 09:15] VITALS: O2SAT 100
[2021-06-03] MEDS: ASPIRIN 81 MG ENTERIC TABLET PO (09:22)
[2021-06-03] MEDS: cefTRIAXone 2 GM in SODIUM CHLORIDE 0.9% IV 100 ML 200 ML IVPB ×2 (09:22→21:54)
[2021-06-03] MEDS: ENOXAPARIN 40 MG/0.4 ML SYRINGE SUB-Q (09:23)
[2021-06-03] MEDS: FLUTICASONE/SALMETEROL 230-21 MCG INHALER 1 PUFF 2 PUFF INHALATION ×2 (09:30→20:47)
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
--- NOTE | 2021-06-03 11:08 | PM.IMPN ---
Progress Note: A&P Assessment and Plan (1) Pneumonia: Qualifiers: Laterality: bilateral Lung location: unspecified part of lung Pneumonia type: due to unspecified organism Qualified Code(s): J18.9 - Pneumonia, unspecified organism Code(s): J18.9 - Pneumonia, unspecified organism Status: Acute Assessment and Plan: Chest x-ray show bilateral peripheral opacities with focal airspace opacities in the right mid low zone and left lower lung zone pulmonary edema versus pneumonia CTA showed no PE, bilateral multifocal pneumonia, emphysema Continue with azithromycin Rocephin Continue with inhaler Blood cultures found Haemophilus influenzae Changed antibiotics to ceftriaxone 2gm IV Q12hr COVID negative sputum culture pending tailor antibiotics as sensitivities arrive await cultures WBC 12.1 06/01/2021 Interval history: patient sitting in the chair working with occupation therapy states feeling much denies any cough or shortness of fever or chills, repeat chest x-ray shows improvement in pneumonia, will continue present management, her son is coming from [place] and further recommendation to follow. 06/02/2021 Interval history: patient sitting in the bed eating her breakfast, states feeling much denies any cough or shortness of breath, fever or chills, repeat chest x-ray on 06/01 showed improvement in pneumonia, will continue present management, I spoke with her son who is in [place] and stranded in the storm, plan is to discharge patient on Friday and let her son know, further recommendation to follow. 06/03/2021 Interval history: patient sitting in the bed, states feeling much denies any cough or shortness of breath, fever or chills, repeat chest x-ray on 06/01 showed improvement in pneumonia, will continue present management, I spoke with her son on 06/02 who is in [place] and stranded in the storm, plan is to discharge patient on Friday and will let her son know, further recommendation to follow. (2) Acute respiratory failure with hypoxia: Code(s): J96.01 - Acute respiratory failure with hypoxia Status: Acute Assessment and Plan: SpO2 noted to be at 76 with activity supplemental oxygen provided wean to maintain saturations greater than 92% no history of oxygen use at home Trend SpO2 there could be a component of heart failure (3) Heart failure: Code(s): I50.9 - Heart failure, unspecified Status: Acute Assessment and Plan: BNP 3480 echo ordered 2+ pitting edema bilateral lower extremities add Lasix 40 mg b.i.d. x4 doses monitor urine output daily weights (4) Asthma: Code(s): J45.909 - Unspecified asthma, uncomplicated Status: Acute Assessment and Plan: continue home Advair, and albuterol CTA shows emphysema (5) Lymphadenopathy: Code(s): R59.1 - Generalized enlarged lymph nodes Status: Acute Assessment and Plan: found on the chest CT will have patient follow-up outpatient when she gets home Subjective Date/time seen: 06/03/21 11:08 Interval history: Date/Time: 05/29/21 20:05 This is a 80-year-old female patient who resides in [place]. She had been out of her inhalers and she has a history of asthma. She has been having a worsening cough and shortness of breath. She does not wear oxygen at home. Her son Irvin also has a cough. CTA was read as 1. No evident pulmonary embolism. Sensitivity significantly decreased in the segmental and subsegmental pulmonary arteries due to primarily to respiratory motion artifact. 2. Bilateral multifocal pneumonia. 3. Likely emphysema assessment is somewhat limited by motion artifact. 4. Likely reactive mediastinal and bilateral hilar lymphadenopathy. 5. Hydronephrosis versus prominent peripelvic cysts at the visualized upper pole of the left kidney. The patient was given IV Lasix and start
[2021-06-03 14:00] VITALS: BP 136/55; PULSE 72; RESP 16; TEMP 36.7; O2SAT 95
[2021-06-03 20:00] VITALS: O2SAT 92
[2021-06-03] MEDS: ALBUTEROL SULFATE (*SP) AEROSOL 1 PUFF 2 PUFF INHALATION (20:47)
[2021-06-03 20:49] VITALS: PULSE 67; O2SAT 94
[2021-06-03 21:34] VITALS: BP 151/65; PULSE 64; RESP 18; TEMP 36.6; O2SAT 96
[2021-06-04] VITALS (8 sets, daily range): BP systolic 177–179; BP diastolic 67–74; PULSE 64–96; RESP 18–20; TEMP 36.2–36.3; O2SAT 89–100
[2021-06-04 06:53] LABS: Hematocrit 34.1 % (37.0-47.0); Hemoglobin 10.6 g/dL (12.0-15.0); Mean Corpuscular HGB Conc 31.1 g/dl (32-36); Mean Corpuscular Hemoglobin 27.9 pg (26-34); Mean Corpuscular Volume 89.7 fl (80-100); Mean Platelet Volume 10.1 fl (7.4-10.4); Platelet Count Result 290 k/mm3 (150-375); White Blood Count 10.6 K/mm3 (4.5-10.0)
[2021-06-04] MEDS: ENOXAPARIN 40 MG/0.4 ML SYRINGE SUB-Q (09:31)
[2021-06-04] MEDS: ASPIRIN 81 MG ENTERIC TABLET PO (09:32)
[2021-06-04 09:58] LABS: Anion Gap 5 mmol/L (8-16); Blood Urea Nitrogen 22 mg/dL (7-17); Calcium 9.1 mg/dL (8.4-10.2); Carbon Dioxide 34 mmol/L (22-30); Chloride 99 mmol/L (98-107); Estimated CRCL calculation 59 ml/min; Estimated Glomerular Filt Rate > 60; Glucose 104 mg/dL (65-110); Potassium 4.3 mmol/L (3.4-5.0); Sodium 138 mmol/L (137-145)
[2021-06-04] MEDS: FLUTICASONE/SALMETEROL 230-21 MCG INHALER 1 PUFF 2 PUFF INHALATION (10:16)
--- NOTE | 2021-06-04 11:57 | PCNFU ---
Nutrition Follow-Up Complete: Inadequate intake related to pneumonia and acute respiratory failure as evidenced by reported intake of 20% Goal: Meet nutritional needs Pt. is progressing towards goal. No new goal at this time. Pt current nutrition is a heart healthy diet. Last recorded weight is 73.5 kg. Recommend re-weighing pt. prior to discharge. Bowel Motility: + BM 06/03/2021 Labs Reviewed: Hgb 10.6, Hct 34.1 Meds Noted: Albuterol, Zithromax, Lovenox, Nystatin Skin: No skin breakdown at this time. WNL. Additional Notes: Patient has a good appetite consuming on average 89% of meals. She is receiving ensure compact BID providing an additional 220 calories and 9 grams of protein. Will f/u with pt in 5 days
--- NOTE | 2021-06-04 12:16 | P.PNIM_ITS ---
Progress Note: A&P Assessment and Plan (1) Pneumonia: Qualifiers: Laterality: bilateral Lung location: unspecified part of lung Pneumonia type: due to unspecified organism Qualified Code(s): J18.9 - Pneumonia, unspecified organism Code(s): J18.9 - Pneumonia, unspecified organism Status: Acute Assessment and Plan: * Chest x-ray show bilateral peripheral opacities with focal airspace opacities in the right mid low zone and left lower lung zone pulmonary edema versus pneumonia * CTA showed no PE, bilateral multifocal pneumonia, emphysema * Continue with azithromycin Rocephin * Continue with inhaler * Blood cultures found Haemophilus influenzae * Changed antibiotics to ceftriaxone 2gm IV Q12hr * COVID negative * sputum culture pending * tailor antibiotics as sensitivities arrive * await cultures * WBC 12.1 06/01/2021 Interval history: patient sitting in the chair working with occupation therapy states feeling much denies any cough or shortness of fever or chills, repeat chest x-ray shows improvement in pneumonia, will continue present management, her son is coming from [place] and further recommendation to follow. 06/02/2021 Interval history: patient sitting in the bed eating her breakfast, states feeling much denies any cough or shortness of breath, fever or chills, repeat chest x-ray on 06/01 showed improvement in pneumonia, will continue present management, I spoke with her son who is in [place] and stranded in the storm, plan is to discharge patient on Friday and let her son know, further recommendation to follow. 06/03/2021 Interval history: patient sitting in the bed, states feeling much denies any cough or shortness of breath, fever or chills, repeat chest x-ray on 06/01 showed improvement in pneumonia, will continue present management, I spoke with her son on 06/02 who is in [place] and stranded in the storm, plan is to discharge patient on Friday and will let her son know, further recommendation to follow. 06/04/2021 Interval history: patient sitting in the bed, states feeling much denies any cough or shortness of breath, fever or chills, repeat chest x-ray on 06/01 showed improvement in pneumonia, will continue present management, I spoke with her son on 06/02 who is in [place] and stranded in the storm, plan is to discharge patient today however her son in not here to take her home, will CPM, further recommendation to follow. (2) Acute respiratory failure with hypoxia: Code(s): J96.01 - Acute respiratory failure with hypoxia Status: Acute Assessment and Plan: * SpO2 noted to be at 76 with activity * supplemental oxygen provided wean to maintain saturations greater than 92% * no history of oxygen use at home * Trend SpO2 * there could be a component of heart failure (3) Heart failure: Code(s): I50.9 - Heart failure, unspecified Status: Acute Assessment and Plan: * BNP 3480 * echo ordered * 2+ pitting edema bilateral lower extremities * add Lasix 40 mg b.i.d. x4 doses * monitor urine output * daily weights (4) Asthma: Code(s): J45.909 - Unspecified asthma, uncomplicated Status: Acute Assessment and Plan: * continue home Advair, and albuterol * CTA shows emphysema (5) Lymphadenopathy: Code(s): R59.1 - Generalized enlarged lymph nodes Status: Acute Assessment and Plan: * found on the chest CT will have patient follow-up outpatient when she gets home
--- NOTE | 2021-06-04 12:16 | PM.IMPN ---
Progress Note: A&P Assessment and Plan (1) Pneumonia: Qualifiers: Laterality: bilateral Lung location: unspecified part of lung Pneumonia type: due to unspecified organism Qualified Code(s): J18.9 - Pneumonia, unspecified organism Code(s): J18.9 - Pneumonia, unspecified organism Status: Acute Assessment and Plan: Chest x-ray show bilateral peripheral opacities with focal airspace opacities in the right mid low zone and left lower lung zone pulmonary edema versus pneumonia CTA showed no PE, bilateral multifocal pneumonia, emphysema Continue with azithromycin Rocephin Continue with inhaler Blood cultures found Haemophilus influenzae Changed antibiotics to ceftriaxone 2gm IV Q12hr COVID negative sputum culture pending tailor antibiotics as sensitivities arrive await cultures WBC 12.1 06/01/2021 Interval history: patient sitting in the chair working with occupation therapy states feeling much denies any cough or shortness of fever or chills, repeat chest x-ray shows improvement in pneumonia, will continue present management, her son is coming from [place] and further recommendation to follow. 06/02/2021 Interval history: patient sitting in the bed eating her breakfast, states feeling much denies any cough or shortness of breath, fever or chills, repeat chest x-ray on 06/01 showed improvement in pneumonia, will continue present management, I spoke with her son who is in [place] and stranded in the storm, plan is to discharge patient on Friday and let her son know, further recommendation to follow. 06/03/2021 Interval history: patient sitting in the bed, states feeling much denies any cough or shortness of breath, fever or chills, repeat chest x-ray on 06/01 showed improvement in pneumonia, will continue present management, I spoke with her son on 06/02 who is in [place] and stranded in the storm, plan is to discharge patient on Friday and will let her son know, further recommendation to follow. 06/04/2021 Interval history: patient sitting in the bed, states feeling much denies any cough or shortness of breath, fever or chills, repeat chest x-ray on 06/01 showed improvement in pneumonia, will continue present management, I spoke with her son on 06/02 who is in [place] and stranded in the storm, plan is to discharge patient today however her son in not here to take her home, will CPM, further recommendation to follow. (2) Acute respiratory failure with hypoxia: Code(s): J96.01 - Acute respiratory failure with hypoxia Status: Acute Assessment and Plan: SpO2 noted to be at 76 with activity supplemental oxygen provided wean to maintain saturations greater than 92% no history of oxygen use at home Trend SpO2 there could be a component of heart failure (3) Heart failure: Code(s): I50.9 - Heart failure, unspecified Status: Acute Assessment and Plan: BNP 3480 echo ordered 2+ pitting edema bilateral lower extremities add Lasix 40 mg b.i.d. x4 doses monitor urine output daily weights (4) Asthma: Code(s): J45.909 - Unspecified asthma, uncomplicated Status: Acute Assessment and Plan: continue home Advair, and albuterol CTA shows emphysema (5) Lymphadenopathy: Code(s): R59.1 - Generalized enlarged lymph nodes Status: Acute Assessment and Plan: found on the chest CT will have patient follow-up outpatient when she gets home Subjective Date/time seen: 06/04/21 12:16 Interval history: Date/Time: 05/29/21 20:05 This is a 80-year-old female patient who resides in [place]. She had been out of her inhalers and she has a history of asthma. She has been having a worsening cough and shortness of breath. She does not wear oxygen at home. Her son Irvin also has a cough. CTA was read as 1. No evident pulmonary embolism. Sensitivity sign
[2021-06-04] MEDS: cefTRIAXone 2 GM in SODIUM CHLORIDE 0.9% IV 100 ML 200 ML IVPB (12:42)
--- NOTE | 2021-06-04 13:46 | P.DS_ITS ---
DS: Admitting Diagnosis Discharge Date 06/04/2021 Admitting Diagnosis shortness of breath DS: Discharge Diagnosis Discharge Diagnosis (1) Pneumonia: Qualifiers: Laterality: bilateral Lung location: unspecified part of lung Pneumonia type: due to unspecified organism Qualified Code(s): J18.9 - Pneumonia, unspecified organism Code(s): J18.9 - Pneumonia, unspecified organism Status: Acute Assessment and Plan: * Chest x-ray show bilateral peripheral opacities with focal airspace opacities in the right mid low zone and left lower lung zone pulmonary edema versus pneumonia * CTA showed no PE, bilateral multifocal pneumonia, emphysema * Continue with azithromycin Rocephin * Continue with inhaler * Blood cultures found Haemophilus influenzae * Changed antibiotics to ceftriaxone 2gm IV Q12hr * COVID negative * sputum culture pending * tailor antibiotics as sensitivities arrive * await cultures * WBC 12.1 06/01/2021 Interval history: patient sitting in the chair working with occupation therapy states feeling much denies any cough or shortness of fever or chills, repeat chest x-ray shows improvement in pneumonia, will continue present management, her son is coming from [place] and further recommendation to follow. 06/02/2021 Interval history: patient sitting in the bed eating her breakfast, states feeling much denies any cough or shortness of breath, fever or chills, repeat chest x-ray on 06/01 showed improvement in pneumonia, will continue prese nt management, I spoke with her son who is in [place] and stranded in the storm, plan is to discharge patient on Friday and let her son know, further recommendation to follow. 06/03/2021 Interval history: patient sitting in the bed, states feeling much denies any cough or shortness of breath, fever or chills, repeat chest x-ray on 06/01 showed improvement in pneumonia, will continue present management, I spoke with her son on 06/02 who is in [place] and stranded in the storm, plan is to discharge patient on Friday and will let her son know, further recommenda tion to follow. 06/04/2021 Interval history: patient sitting in the bed, states feeling much denies any cough or shortness of breath, fever or chills, repeat chest x-ray on 06/01 showed improvement in pneumonia, will continue present management, I spoke with her son on 06/02 who is in [place] and stranded in the storm, plan is to discharge patient today however her son in not here to take her home, will CPM, further recommendation to follow. (2) Acute respiratory failure with hypoxia: Code(s): J96.01 - Acute respiratory failure with hypoxia Status: Acute Assessment and Plan: * SpO2 noted to be at 76 with activity * supplemental oxygen provided wean to maintain saturations greater than 92% * no history of oxygen use at home * Trend SpO2 * there could be a component of heart failure (3) Heart failure: Code(s): I50.9 - Heart failure, unspecified Status: Acute Assessment and Plan: * BNP 3480 * echo ordered * 2+ pitting edema bilateral lower extremities * add Lasix 40 mg b.i.d. x4 doses * monitor urine output * daily weights (4) Asthma: Code(s): J45.909 - Unspecified asthma, uncomplicated Status: Acute Assessment and Plan: * continue home Advair, and albuterol * CTA shows emphysema (5) Lymphadenopathy: Code(s): R59.1 - Generalized enlarged lymph nodes Status: Acute Assessment and Plan:
--- NOTE | 2021-06-04 13:46 | PM.DS ---
DS: Admitting Diagnosis Discharge Date 06/04/2021 Admitting Diagnosis shortness of breath DS: Discharge Diagnosis Discharge Diagnosis (1) Pneumonia: Qualifiers: Laterality: bilateral Lung location: unspecified part of lung Pneumonia type: due to unspecified organism Qualified Code(s): J18.9 - Pneumonia, unspecified organism Code(s): J18.9 - Pneumonia, unspecified organism Status: Acute Assessment and Plan: Chest x-ray show bilateral peripheral opacities with focal airspace opacities in the right mid low zone and left lower lung zone pulmonary edema versus pneumonia CTA showed no PE, bilateral multifocal pneumonia, emphysema Continue with azithromycin Rocephin Continue with inhaler Blood cultures found Haemophilus influenzae Changed antibiotics to ceftriaxone 2gm IV Q12hr COVID negative sputum culture pending tailor antibiotics as sensitivities arrive await cultures WBC 12.1 06/01/2021 Interval history: patient sitting in the chair working with occupation therapy states feeling much denies any cough or shortness of fever or chills, repeat chest x-ray shows improvement in pneumonia, will continue present management, her son is coming from [place] and further recommendation to follow. 06/02/2021 Interval history: patient sitting in the bed eating her breakfast, states feeling much denies any cough or shortness of breath, fever or chills, repeat chest x-ray on 06/01 showed improvement in pneumonia, will continue present management, I spoke with her son who is in [place] and stranded in the storm, plan is to discharge patient on Friday and let her son know, further recommendation to follow. 06/03/2021 Interval history: patient sitting in the bed, states feeling much denies any cough or shortness of breath, fever or chills, repeat chest x-ray on 06/01 showed improvement in pneumonia, will continue present management, I spoke with her son on 06/02 who is in [place] and stranded in the storm, plan is to discharge patient on Friday and will let her son know, further recommendation to follow. 06/04/2021 Interval history: patient sitting in the bed, states feeling much denies any cough or shortness of breath, fever or chills, repeat chest x-ray on 06/01 showed improvement in pneumonia, will continue present management, I spoke with her son on 06/02 who is in [place] and stranded in the storm, plan is to discharge patient today however her son in not here to take her home, will CPM, further recommendation to follow. (2) Acute respiratory failure with hypoxia: Code(s): J96.01 - Acute respiratory failure with hypoxia Status: Acute Assessment and Plan: SpO2 noted to be at 76 with activity supplemental oxygen provided wean to maintain saturations greater than 92% no history of oxygen use at home Trend SpO2 there could be a component of heart failure (3) Heart failure: Code(s): I50.9 - Heart failure, unspecified Status: Acute Assessment and Plan: BNP 3480 echo ordered 2+ pitting edema bilateral lower extremities add Lasix 40 mg b.i.d. x4 doses monitor urine output daily weights (4) Asthma: Code(s): J45.909 - Unspecified asthma, uncomplicated Status: Acute Assessment and Plan: continue home Advair, and albuterol CTA shows emphysema (5) Lymphadenopathy: Code(s): R59.1 - Generalized enlarged lymph nodes Status: Acute Assessment and Plan: found on the chest CT will have patient follow-up outpatient when she gets home DS: Summary Hospital Course Reason for hospitalization: this is a 80-year-old female patient who resides in [place]. She had been out of her inhalers and she has a history of asthma. She has been having a worsening cough and shortness of breath. She does not wear oxygen at home. Her son Irvin also has a cough. C
--- NOTE | 2021-06-04 14:07 | PCNSR ---
On 06/04/21, the student, Kelsey Sheffield, provided care and completed [facility] documentation on this patient. I have reviewed the student's documentation and agree with the findings.
--- NOTE | 2021-06-04 15:38 | PCOTNOTE ---
On 06/04/21, the student, Daniela BLACKWOOD, provided care and completed [facility] documentation on this patient. I have reviewed the student's documentation and agree with the findings.
== END 2021-06-04 19:00 | disposition home or self-care (01) | DRG 193 ==
LOC: ANHED 14:23 → ANH3MEDSUR 15:58
PROVIDERS: Nurse Practitioner; Physician Assistant; Admitting Provider Internal Medicine; Emergency Provider Emergency Medicine; Visit Provider Family Medicine
DX: J18.9 Pneumonia, unspecified organism (principal); J96.01 Acute respiratory failure with hypoxia; Z20.822 Contact with and (suspected) exposure to COVID-19; I50.9 Heart failure, unspecified; J45.909 Unspecified asthma, uncomplicated; R59.1 Generalized enlarged lymph nodes; Z28.21 Immunization not carried out because of patient refusal; Z98.49 Cataract extraction status, unspecified eye
CPT/HCPCS: 36415; 71046; 71275; 76775; 80048; 80053; 82565; 82728; 83605; 83615; 83735; 83880; 84443; 84460; 85025; 85027; 85380; 85610; 85730; 86140; 87040; 87070; 87077; 87205; 87804; 93005; 93306; 93970; 94618; 94640; 96365; 96367; 96375; 97110; 97116; 97161; 97165; 97530; 97535; 99285; A9270; C9803; G0378; J0456; J0696; J1100; J1650; J1940; Q9967; U0003; U0005